=== PATIENT | male | born 1975 | race Caucasian/White ===

== ENCOUNTER 2018-07-18 14:36 | Emergency (ER) | payer OTHER ==
[~2018-07-18] VITALS: Ht 177.8 cm; Wt 93.0 kg
[2018-07-18] MEDS ORDERED: PREDNISONE 20 M20 MG PO (17:18)
[2018-07-18] MEDS ORDERED: AMOXICILLIN 50500 M1 PO (17:18)
[2018-07-18] MEDS ORDERED: CARDIZEM CD120 MG PO (17:18)
[2018-07-18] MEDS ORDERED: TRAMADOL 50 MG50 MG PO (17:19)
[2018-07-18] MEDS ORDERED: JANUMET 50-1,01 EACH PO (17:27)
[2018-07-18] MEDS ORDERED: XARELTO20 MG PO (17:27)
[2018-07-18 17:47] VITALS: BP 107/79
[2018-07-21 11:46] LABS: HEMATOCRIT 42.9 % (42.0-52.0); HEMOGLOBIN 14.8 gm/dL (14.0-18.0); MCH 30.3 pg (26.0-34.0); MCHC 34.4 % (28.0-37.0); PLATELET COUNT 257 thou/uL (150-400); POLYS 59.9 % (36.0-66.0); RBC 4.88 mil/uL (4.50-6.00); RDW 14.4 % (10.5-14.5); WBC 5.4 thou/uL (4.0-11.0)
[2018-07-21 11:47] LABS: ABSOLUTE NEUTROPHILS 3.2 thou/uL (1.4-8.2); BASOPHILS 0.9 % (0.0-2.0); EOSINOPHILS 1.9 % (0.0-3.0); LYMPHOCYTES 26.8 % (24.0-44.0); MONOCYTES 10.5 % (1.0-8.0)
[2018-07-21 11:48] LABS: APTT 28.2 Seconds (24.5-32.8); INR 1.1; PROTIME 11.6 Seconds (9.3-11.4)
[2018-07-21 11:50] LABS: ANION GAP 9 mmol/L (7-16); BUN 6 mg/dL (7-18); CALCIUM 9.5 mg/dL (8.5-10.1); CHLORIDE 104 mmol/L (98-107); CO2 28 mmol/L (21-32); CREATININE 0.8 mg/dL (0.7-1.3); GLUCOSE 127 mg/dL (74-106); MAGNESIUM 2.2 mg/dL (1.8-2.4); POTASSIUM 3.5 mmol/L (3.5-5.1); SGOT 74 U/L (15-37); SODIUM 141 mmol/L (136-145)
[2018-07-21 11:51] LABS: ALBUMIN 3.8 g/dL (3.4-5.0); SGPT 84 U/L (30-65); TOTAL PROTEIN 7.2 g/dL (6.4-8.2); TROPONIN-I <0.06 ng/mL (<0.06)
[2018-07-21 11:54] LABS: AMP/METHAMP Negative (Negative); BARBITURATES Negative (Negative); BENZODIAZEPINES Negative (Negative); COCAINE Negative (Negative); METHADONE Negative (Negative); OPIATES Negative (Negative); PCP Negative (Negative)
== END 2018-07-18 18:00 | disposition home or self-care (01) ==
LOC: ER 14:36
PROVIDERS: Emergency Medicine
DX: J20.9 Acute bronchitis, unspecified (principal); I48.91 Unspecified atrial fibrillation; K76.0 Fatty (change of) liver, not elsewhere classified

== ENCOUNTER 2018-07-23 11:32 | Emergency (ER) | payer OTHER ==
[~2018-07-23] VITALS: Ht 177.8 cm; Wt 93.0 kg
--- NOTE | ~2018-07-23 | EKG ---
[place] [address] [facility] [place] [address] ELECTROCARDIOGRAM REPORT Name: FLORENCE MAYFIELD JR Room #: DEP [facility]ITALAde[facility] [id number] Admission: 07/23/18 Attend Phys: Discharge: 07/23/18 Date of : 71 Report #: [id number] THIS REPORT FOR: //name// Formerly [facility] ED Test Date: 2018-07-23 Test Time: 11:45:46 Pat Name: FLORENCE MAYFIELD Department: Room: Gender: [employer] Member: BHAVIK : 1975 Requested By: Florence Crum Order Number: [id number] MD: Ken Navarrete Measurements Intervals [place] Rate: 123 P: 173 NC: 132 QRS: -42 QRSD: 136 T: 14 QT: 376 QTc: 538 Interpretive Statements Atrial fibrillation with a rapid ventricular response Nonspecific IVCD with LAD Baseline wander in lead(s) V2 No previous ECG available for comparison Electronically Signed On 07-24-2018 17:57:06 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
[~2018-07-23 11:32] MED LIST: AMOXICILLIN 50500 M1 PO; CARDIZEM CD120 MG PO; JANUMET 50-1,01 EACH PO; PREDNISONE 20 M20 MG PO; TRAMADOL 50 MG50 MG PO; XARELTO20 MG PO
[2018-07-23 12:11] LABS: ABSOLUTE NEUTROPHILS 4.1 thou/uL (1.4-8.2); BASOPHILS 0.3 % (0.0-2.0); EOSINOPHILS 0.3 % (0.0-3.0); HEMATOCRIT 43.9 % (42.0-52.0); HEMOGLOBIN 14.7 gm/dL (14.0-18.0); LYMPHOCYTES 42.3 % (24.0-44.0); MCH 29.3 pg (26.0-34.0); MCHC 33.5 g/dL (28.0-37.0); MCV 87.6 fL (80.0-100.0); MONOCYTES 7.8 % (1.0-8.0); PLATELET COUNT 377 thou/uL (150-400); POLYS 49.3 % (36.0-66.0); RBC 5.01 mil/uL (4.50-6.00); RDW 14.3 % (10.5-14.5); WBC 8.3 thou/uL (4.0-11.0)
[2018-07-23 12:13] LABS: CALCIUM 9.9 mg/dL (8.5-10.1); CREATININE 0.9 mg/dL (0.7-1.3); POTASSIUM 3.4 mmol/L (3.5-5.1)
[2018-07-23] MEDS ORDERED: TESSALON PERLE100 MG PO (12:36)
[2018-07-23] MEDS ORDERED: CARDIZEM CD240 MG PO (12:36)
[2018-07-23 12:38] VITALS: BP 110/80
== END 2018-07-23 13:00 | disposition home or self-care (01) ==
LOC: ER 11:32
PROVIDERS: Emergency Medicine
DX: I48.0 Paroxysmal atrial fibrillation (principal); J06.9 Acute upper respiratory infection, unspecified